=== PATIENT | female | born 2000 | race American Indian/Alaskan Native ===

== ENCOUNTER 2019-05-24 10:37 | Emergency (ER) | payer SELFPAY ==
[2019-05-24] MEDS ORDERED: traMADol 50 MG TAB PO ONE (11:24)
[2019-05-24] MEDS ORDERED: KETOROLAC 60 MG/2 ML INJ IM ONE (11:24)
[2019-05-24] MEDS ORDERED: TETANUS,DIPH,PERTUSS(ACELL) VACCINE 0.5 ML SYRINGE IM ONE (11:25)
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
[2019-05-24 12:49] VITALS: BP 117/68
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
== END 2019-05-24 13:44 | disposition home or self-care (01) ==
LOC: ED 10:37
DX: S32.010A Wedge compression fracture of first lumbar vertebra, initial encounter for closed fracture (principal); S61.011A Laceration without foreign body of right thumb without damage to nail, initial encounter; F17.200 Nicotine dependence, unspecified, uncomplicated; F12.10 Cannabis abuse, uncomplicated; Z79.899 Other long term (current) drug therapy; W25.XXXA Contact with sharp glass, initial encounter; Y93.89 Activity, other specified; Y92.89 Other specified places as the place of occurrence of the external cause; Y99.8 Other external cause status
CPT/HCPCS: 12001; 72100; 72131; 73140; 90471; 90715; 96372; 99284; J1885